=== PATIENT | male | born 2000 | race African-American/Black ===

== ENCOUNTER 2023-03-17 09:39 | Outpatient (CLI) | payer BC, SELFPAY ==
--- NOTE | ~2023-03-17 | XR_ITS ---
EXAMINATION: XR fl inj shoulder RT - MR/CT DATE: 03/17/2023 10:39 INDICATION: Acute onset right shoulder pain TECHNIQUE: A time-out was performed to verify the patient's name, date of , and procedure to b e performed. The procedure including the risks, benefits, and alternatives was discussed with the pat ient. Risks discussed included bleeding and infection. The patient understood the risks and agreed to proceed. The skin overlying the rotator cuff interval of the right glenohumeral joint was prepped a nd draped in usual sterile fashion. Anesthetic was administered with 1% lidocaine subcutaneously. A 22 G needle was advanced under fluoroscopic guidance into the joint. Injection of 1 mL of Omnipaque 240 confirmed intra-articular position of the needle. Subsequently, injectate consisting of 12 mL o f 2:1:1 mixture of sterile saline:Omnipaque 240:1% lidocaine mixed 200:1 with 529 mg/mL Multihance ga dolinium contrast was injected with intermittent fluoroscopy confirming intra-articular administratio n. The needle was removed and the entry site was cleaned and dressed. There were no immediate compli cations. Fluoroscopy exposure time was 0.2 minutes. The total number of images was 84. FINDINGS: Real-time fluoroscopy demonstrates the needle in the right glenohumeral joint. There appear s to be a shallow Hill-Sachs fracture deformity at the posterolateral aspect of the humeral head. Fol lowing the joint injection a small amount of dilute blood was noted leaking from the needle suggestin g a likely underlying posttraumatic hemarthrosis. IMPRESSION: 1. Successful right glenohumeral joint injection of dilute gadolinium contrast mixture for subsequent MRI arthrogram which will be dictated separately. 2. Small Hill-Sachs fracture deformity at the posterolateral aspect of the humeral head consistent wi th a prior anterior glenohumeral dislocation. Reviewed, dictated and finalized at location A. IMPRESSION: 1. Successful right glenohumeral joint injection of dilute gadolinium contrast mixture for subsequent MRI arthrogram which will be dictated separately. 2. Small Hill-Sachs fracture deformity at the posterolateral aspect of the ellie ral head consistent with a prior anterior glenohumeral dislocation.
--- NOTE | ~2023-03-17 | MR_ITS ---
EXAMINATION: MR shoulder RT w con DATE: 03/17/2023 11:30 INDICATION: Acute onset right shoulder pain TECHNIQUE: Magnetic resonance imaging (MRI) of the right shoulder was performed following intra-rachelle cular gadolinium contrast injection and without intravenous contrast. Details of the glenohumeral kaleigh nt injection have been dictated separately. Sequences included axial T2-weighted FS FSE, axial T1-we ighted FS FSE, coronal oblique T1-weighted FS FSE, coronal oblique T2-weighted FSE, sagittal T2-weigh yu FS FSE, sagittal T1-weighted FSE, and ABER (abduction external rotation) T1-weighted FS FSE. COMPARISON: None. FINDINGS: Coracoacromial arch: The acromion undersurface is curved in morphology (type II). The coracoacromial ligament is normal. A cromioclavicular joint is normal. Rotator cuff: The supraspinatus, infraspinatus and teres minor are normal. The subscapularis is normal. Normal rota tor cuff muscle bulk and signal. Biceps tendon, glenoid labrum and glenohumeral cartilage: Long head of the biceps tendon is normal. Labral tear with detachment of the 3:00-5:30 position of th e anteroinferior glenoid labrum which with images with the arm in external rotation appears inferiorl y and medially displaced into the recess along the anteroinferior and inferior rim of the glenoid. Th ere is also a partial tear of the glenoid attachment of the anterior inferior glenohumeral ligament c onsistent with a soft tissue Bankart injury. No evident osseous Bankart fracture. There also appears to be a tear of the middle glenohumeral ligament. The displaced labral tissue appears to reduced to n ear normal position with the arm in the ABER position. Normal small sulcus at the anterosuperior labr um. Glenohumeral cartilage is normal aside from involvement of a minimal amount of the cartilage howard g the anteroinferior rim of the glenoid. Bones and other: Bone alignment is normal. There is marrow edema along a shallow Hill-Sachs fracture trough at the pos terolateral aspect of the humeral head. Marrow signal is otherwise normal. No other fractures identif ied. No abnormal fluid signal in the subacromial/subdeltoid bursa to suggest bursitis. IMPRESSION: 1. Stigmata of recent anterior glenohumeral dislocation with soft tissue Bankart lesion at the alexi inferior glenoid with tear and displacement of a segment of the anteroinferior glenoid labrum and min imal amount the cartilage at the chondral labral junction as well as partial tear of the glenoid erin e of the anteroinferior glenohumeral ligament. 2. Corresponding small shallow Hill-Sachs fracture trough at the posterolateral humeral head. Reviewed, dictated and finalized at location A. IMPRESSION: 1. Stigmata of recent anterior glenohumeral dislocation with soft tissue Bankar t lesion at the anteroinferior glenoid with tear and displacement of a segment of the anteroinferior glenoid labrum and minimal amount the cartilage at the ch ondral labral junction as well as partial tear of the glenoid side of the ante roinferior glenohumeral ligament. 2. Corresponding small shallow Hill-Sachs fracture trough at the posterolateral humeral head.
== END 2023-03-17 09:40 | disposition home or self-care (01) ==
PROVIDERS: Visit Provider Orthopaedic Surgery
DX: S43.431A Superior glenoid labrum lesion of right shoulder, initial encounter (principal); S42.291A Other displaced fracture of upper end of right humerus, initial encounter for closed fracture; X58.XXXA Exposure to other specified factors, initial encounter
CPT/HCPCS: 23350; 73222; 77002; A9577; Q9966